=== PATIENT | female | born 1950 | race Caucasian/White ===

== ENCOUNTER 2017-03-30 03:13 | Emergency (ER) | payer MEDICARE, OTHER ==
[2017-03-30] MEDS ORDERED: oxyCODONE HCL/ACETAMINOPHEN 1 TAB TABLET PO ONE ×2 (03:57→04:03)
[2017-03-30] MEDS ORDERED: DIPHTH,PERTUSS(ACELL),TET VAC 0.5 ML VIAL IM ONE ×2 (03:58→04:00)
[2017-03-30] MEDS ORDERED: oxyCODONE HCL/ACETAMINOPHEN 1 TAB TABLET ONE ×2 (03:59→04:09)
[2017-03-30] MEDS ORDERED: CIPROFLOXACIN HCL 50 DROP BTL EACHEYE ONE (04:04)
--- NOTE | 2017-03-30 04:06 | ERNOTE ---
ENT HPI Date of Service: 03/30/17 Presenting Symptoms: eye pain, other Time Seen by Provider: 03/30/17 03:35 Source: patient, family Exam Limitations: no limitations - Immun/Allergies/Home Medications Immunizations: IMMUNIZATION HX Immunizations Up to Date Yes History of Influenza Vaccine Yes Hx Pneumococcal Vaccination No Allergies/Adverse Reactions: Allergies Allergy/AdvReac Type Severity Reaction Status Date / Time No Known Allergies Allergy Verified 03/30/17 03:26 Home Medications: HOME MEDICATIONS Hydrochlorothiazide [Hydrodiuril] 25 mg PO DAILY 07/07/13 [Last Taken Unknown] Losartan Potassium [Cozaar] 100 mg PO DAILY 03/30/17 [Last Taken Unknown] - History of Present Illness Date (Duration): 03/30/17 Time (Timing): 03:58 Severity: Present: moderate ENT Location: Present: eye (R) Prearrival Treatment: Present: no prearrival treatment Modifying Factors - Improves: Reports: nothing Modifying Factors - Worsens: Reports: nothing Associated Symptoms - ENT: Reports: other - patient 67-year-old female who noted pain right eye shortly after taking out contact. Patient's last tetanus status unknown. Patient has had marked pain since time of above. Above makes it difficult for her to open her eye at time of arrival. Review of Systems - Review of Systems Constitutional: Present: no symptoms reported EYE: Present: eye pain ENT: Present: no symptoms reported Respiratory: Present: no symptoms reported Cardiology: Present: no symptoms reported Gastrointestinal/Abdominal: Present: no symptoms reported Genitourinary: Present: no symptoms reported Musculoskeletal: Present: no symptoms reported Skin: Present: no symptoms reported Neurological: Present: no symptoms reported Endocrine: Present: no symptoms reported Hematologic/Lymphatic: Present: no symptoms reported Psych: Present: no symptoms reported - Patient's Past Medical History Patient History - Medical: Hypothyroidism Patient History - Cardiac/Respiratory: Hypertension Patient History - Cancer: History Unknown Patient History - Surgical Procedures: Cholecystectomy, Colonoscopy - Family History Mother Family History - Cardiac/Respiratory: Hypertension Family History - Cancer: History Unknown - Social History Living Situations: spouse Abuse History: No History of abuse Psych History: No pertinent hx Smoking Status: Never smoker Have you smoked in the past 12 months: No Alcohol Use: none Drug Use: none - Immunizations Immunizations Up to Date: Yes Hx Pneumococcal Vaccination: No History of Influenza Vaccine: Yes Physical Exam - Physical Exam General Appearance: Present: wd/wn, alert, moderate distress Eye Exam: Normal inspection: right - right eye evaluated using fluorescein. Patient with horseshoe abrasion cornea below pupil. Have appropriately looked under upper and lower eyelid for foreign body which was not present. Patient's eye is injected with minimal amount of chemosis, PERRL: bilateral, EOMI: bilateral Ears, Nose, Throat: Present: normal ENT inspection, normal pharynx Neck: Present: normal inspection, nontender Respiratory: Present: no respiratory distress, normal breath sounds, no accessory muscle use, chest nontender, lungs clear Cardiovascular/Chest: Present: regular rate, rhythm, no murmur, normal peripheral pulses Peripheral Pulses: N=norm/S=strong/W=weak/B=bound/A=absent: Carotid (R): Normal , Carotid (L): Normal, Radial (R): Normal, Radial (L): Normal Gastrointestinal/Abdominal: Present: normal bowel sounds, nontender, nondistended, soft - Paulo I did feel with the treatment, no organomegaly Rectal Exam: Present: deferred Back Exam: Present: normal inspection, normal range of motion, no CVA tenderness , no vertebral tenderness Extremity Exam: Present: normal inspection, non-tender, normal range of motion, no edema Neurological Exam: Present: alert - let's make sure he goes if we can't completely send him home with staff, oriented, normal mood/affect, no motor/ sensory deficits Skin Exam: Present: normal color, warm/dry - Kiel is assumed again again will recur Lymphatic Exam: Present: no adenopathy - prevented this ED Progress - Vital Signs Patient's Vital Signs:: I have reviewed the patient's vital signs. Vital Signs: Vital Signs 03/30/17 03:19 Temperature 36.9 C Pulse Rate 57 L Respiratory 18 Rate Blood Pressure 197/98 O2 Sat by Pulse 97 Oximetry - Progress/Reassessment Chief Complaint: Eye Injury/Trauma Progress:: Improved - patient with marked symptomatic relief following application of Alcaine drops. Patient then provided to Percocet and tetanus updated Departure Clinical Impression: Corneal abrasion - Departure Disposition: Home self-care Condition: Good Additional Instructions: Please take Percocet 1-2 tabs every 8 hours as needed for pain. Please take topical antibacterial as directed for the next 10 days. You need to follow-up this Thursday with an window framer to confirm appropriate healing of that right eye corneal abrasion. Her tetanus was updated today. Referrals: Cira Bruce MD [Primary Care Provider] -
[2017-03-30] MEDS ORDERED: CIPROFLOXACIN HCL 50 DROP BTL ONE (04:09)
--- OUTSIDE RECORDS SUMMARY | 2017-03-30 04:38 | XMS REPORT | Continuity of Care Document ---
:1950 Author Organization [facility] ([facility]) Address [address] [place] [address] Phone [phone] Care Team Providers Name Role Phone Cira Bruce Primary Care Provider [phone] Source Comments This disclosure is being made pursuant to the Care Everywhere program, applicable federal and state laws, and may not contain all informaitonavailable regarding this patient.[facility] ([facility]) Active Allergies and Adverse Reactions No Known Allergies Current Medications Prescription Sig. Disp. Refills Start End Status Date Date hydroCHLOROthiazide 25 Take 25 mg by Active mg tablet mouth daily. losartan 100 mg tablet Take 100 mg by Active mouth daily. naproxen 250 mg tablet Take 250 mg by Active mouth as needed. GLUC MORALES/CHONDRO MORALES Active A/VIT C/MN (GLUCOSAMINE CHONDROITIN MAXSTR PO) pyridoxine (vitamin B6) Take 25 mg by Active (VITAMIN B-6) 25 mg mouth daily. tablet ALPRAZolam 0.5 mg Take 0.5 mg by Active tablet mouth as needed. ibuprofen 600 mg tablet Take 1 tablet 60 tablet 0 11/04/19 Active (600 mg total) 17 by mouth every 6 hours as needed. oxyCODONE-acetaminophen Take 1 tablet by 30 tablet 0 11/04/19 Active 5-325 mg per tablet mouth every 4 17 hours as needed for Pain. Do NOT exceed 4000 mg of acetaminophen per 24 hours. docusate (COLACE) 100 Take 1 capsule 60 capsule 3 11/04/19 Active mg capsule (100 mg total) 17 by mouth 2 times daily. polyethylene glycol Take 17 g (1 255 g 1 11/04/19 Active 3350 (MIRALAX) 17 capful) and mix 17 gram/dose powder in 4 to 8 ounces of beverage and drink by mouth daily. betamethasone Apply topically 45 g 11 03/18/20 Active dipropionate 0.05 % 2 times weekly. 17 ointment Can use up to 3 times weekly if needed to the vulvar and rectal area. cephalexin 250 mg Take 1 capsule 28 capsule 0 11/21/19 Discontinued capsule (250 mg total) 17 017 by mouth 4 times daily. clobetasol 0.05 % Apply topically 30 g 11 03/06/20 Discontinued ointment 3 times weekly. 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 Most Recent Encounters Date Type Specialty Providers Description 03/18/2017 Orders/Notes Obstetrics Felecia Lindquist MD Dx: Lichen sclerosus (Primary Dx) 03/17/2017 Telephone [facility], Chief Comp: Return Call RN 03/06/2017 Office Visit OBG Felecia Villalobos MD Dx: Lichen sclerosus (Primary Dx) Social History Tobacco Use Types Packs/Day Years Used Date Never Smoker Last Filed Vital Signs Vital Sign Reading Time Taken Blood Pressure 182/98 03/06/2017 10:55 AM CDT Pulse 62 03/06/2017 10:55 AM CDT Temperature 36.6 C (97.9 F) 03/06/2017 10:55 AM CDT Respiratory Rate 16 03/06/2017 10:55 AM CDT Height 1.638 m (5' 4.49") 03/06/2017 10:55 AM CDT Weight 91.75 kg (202 lb 4.4 oz) 03/06/2017 10:55 AM CDT Body Mass Index 34.2 03/06/2017 10:55 AM CDT Oxygen Saturation 95% 03/06/2017 10:55 AM CDT Plan of Care Date Type Specialty Providers Description 07/10/2017 Appointment OBG Felecia Villalobos MD Chief Comp: Patient [address] [place] [address] Visit [phone] (Fax) Health Maintenance Due Date Last Done Comments HCV Screening 1950 Hepatitis B Vaccine (1 of 3 - Primary Series) 1950 Tdap Vaccine 1961 Lipid Disorder Screening 01/05/1968 Td Vaccine 01/05/1968 Mammogram 1990 Colonoscopy 2000 Zoster Vaccine 2010 Osteoporosis Screening (DXA Bone Density) 2015 Pneumococcal Vaccine (1 of 2 - PCV13) 2015 Influenza Vaccine: Seasonal (Season Ended) 2017 Results from Last 3 Months Not on file
[2017-03-30 05:54] VITALS: BP 187/93
== END 2017-03-30 04:40 | disposition home or self-care (01) ==
LOC: ER 03:13
DX: I10 Essential (primary) hypertension (principal); S05.01XA Injury of conjunctiva and corneal abrasion without foreign body, right eye, initial encounter; Z23 Encounter for immunization